=== PATIENT | male | born 1945 | race Two or more races ===

== ENCOUNTER 2019-06-12 21:38 | Inpatient (IN) | payer OTHER ==
[~2019-06-12] VITALS: Ht 177.8 cm; Wt 69.9 kg
[2019-06-13] MEDS ORDERED: ASPI-1152 PO (03:40)
[2019-06-13] MEDS ORDERED: FOLI1CAP13 PO (03:45)
[2019-06-13] MEDS ORDERED: CARV6.252 PO (03:48)
[2019-06-13 03:49] VITALS: BP 110/55
[2019-06-13] MEDS ORDERED: GLIP10TA11 PO (03:49)
[2019-06-13] MEDS ORDERED: FERR325T23 PO (03:51)
--- NOTE | 2019-06-13 03:52 | NUR ---
GPS MDS MANAGER NOTES: RECEIVED 73 Y/O MALE PATIENT FROM [facility]. PATIENT ARRIVED ON THIS UNIT AT 0320 VIA STRETCHER BY 2 EMT. PATIENT ADMITTED ON A 5150 HOLD FOR DTO. PER HOLD PATIENT ARRIVED TO [facility] GPS UNIT DUE TO AGGRESSIVE BEHAVIOR. PT FAMILY REPORTED THAT THE PT TALKED ABOUT AND DYING WITH UNPREDICTABLE BEHAVIOR. UPON FACE TO FACE ASSESSMENT PATIENT NOTED ANXIOUS, COOPERATIVE, QUIET, FLAT AFFECT, FORGETFUL, CONFUSED, AND ROMANSH SPEAKING W/ THE UNDERSTANDING OF SOME TONGAN . PT STATED, " I DONT KNOW WHY ME HERE?" PT DENIES S/I AND H/I AT THIS TIME. PATIENT IS CURRENTLY LYING IN BED SLEEPING WITH EYES CLOSED. NO S/S OF RESP DISTRESS. BREATHING EVEN AND UNLABORED. PT HAS NO S/S OF PAIN. PT IS ALERT AND ORIENTED X 1-2 ON ROOM AIR. PATIENT HAS NO NEEDS AT THIS TIME. PATIENT UNABLE TO SIGN PAPERWORK DUE TO CONFUSION. PATIENT ADVISED OF HIS HOLD AND PATIENT RIGHTS HANDBOOK GIVEN. PATIENTS BELONGINGS WERE INVENTORIED AND CHECKED FOR CONTRABAND. ALL CONTRABAND REMOVED AND STORED IN PATIENTS HALLWAY LOCKER. PATIENT ADVANCED DIRECTIVE PREFERENCES AND NECESSARY PAPERWORK COMPLETED. PATIENT SKIN ASSESSMENT COMPLETED WITH PICTURES TAKEN IN PTS CHART. PT ORIENTED TO ROOM, FLOOR, AND STAFF WITH ALL QUESTIONS ANSWERED. PATIENT EDUCATED ON THE USE OF CALL BRITT. PATIENTS SIDERAILS ARE UP X2 FOR SAFETY. INITIAL BLOOD SUGAR CHECK DONE. MRSA SWAB DONE. PATIENTS BED LOCKED, LOW AND I WILL CONTINUE TO MONITOR THIS PATIENT Q15 MIN WITH THE HELP OF THE STAFF TO MAINTAIN SAFETY.
[2019-06-13] MEDS ORDERED: FLUO10CA27 PO (03:53)
[2019-06-13] MEDS ORDERED: HYDR12.55 PO (03:55)
[2019-06-13] MEDS ORDERED: LISI-603 PO (03:56)
[2019-06-13] MEDS ORDERED: LURA40TA PO (03:59)
[2019-06-13] MEDS ORDERED: METF-442 PO (04:01)
[2019-06-13] MEDS ORDERED: PIOG15TA8 PO (04:02)
[2019-06-13] MEDS ORDERED: SIMV-46 PO (04:03)
[2019-06-13] MEDS ORDERED: SITA100T PO (04:03)
[2019-06-13] MEDS ORDERED: FAMO20TA8 PO (04:06)
[2019-06-13] MEDS ORDERED: LORAZEPAM 0.5 MG TABLET PO PRN (04:30)
[2019-06-13] MEDS ORDERED: ACETAMINOPHEN 325 MG TABLET PO PRN (04:30)
[2019-06-13] MEDS ORDERED: MAGNESIUM HYDROXIDE 30 ML UDC PO PRN (04:30)
[2019-06-13] MEDS ORDERED: TEMAZEPAM 7.5 MG CAPSULE PO PRN (04:30)
[2019-06-13] MEDS ORDERED: MAG HYDROX/AL HYDROX/SIMETH 30 ML UDC PO PRN (04:30)
[2019-06-13] MEDS ORDERED: BLOOD SUGAR DIAGNOSTIC 1 EACH STRIP IN ONE (04:30)
--- NOTE | 2019-06-13 07:30 | NUR ---
INITIAL PT IN DENISE RESTING RESPIRATION EVEN NO S/S OF DISTRESS NOTED. PT CALM COOPERATIVE AM POCT BLOOD SUGAR DONE. SIDE RAILS UP X 2 CALL BRITT NEXT TO PAT WILL CONTINUE TO MONITOR.
[2019-06-13] MEDS: BLOOD SUGAR DIAGNOSTIC 1 EACH STRIP IN SCH ×4 (07:55→21:30)
[2019-06-13 08:00] VITALS: BP 99/52
[2019-06-13 16:00] VITALS: BP 156/75
--- NOTE | 2019-06-13 16:06 | NUR ---
LAB OBTAINED URINE SAMPLE AND SENT TO LAB FOR PROCESING
[2019-06-13 16:41] LABS: APPEARANCE,URINE CLEAR (CLEAR); BILIRUBIN,URINE NEGATIVE (NEGATIVE); BLOOD, URINE NEGATIVE Ery/uL (NEGATIVE); COLOR,URINE YELLOW (YELLOW); KETONES,URINE 15 (NEGATIVE); LEUKOCYTE ESTERASE ,URINE NEGATIVE (NEGATIVE); NITRITE, URINE NEGATIVE (NEGATIVE); PH,URINE 5.5 (5.0-8.0); PROTEIN,URINE NEGATIVE (NEGATIVE); UGLUCOSE 500 MG/DL mg/dL (NEGATIVE); UROBILINOGEN,URINE 0.2 EU/dL (0.2)
[2019-06-13] MEDS: glipiZIDE 10 MG TABLET PO SCH (17:10)
[2019-06-13] MEDS: METFORMIN 500 MG TABLET PO SCH (17:10)
[2019-06-13] MEDS: SIMVASTATIN 20 MG TABLET PO SCH (17:11)
[2019-06-13] MEDS: CARVEDILOL 6.25 MG TABLET PO SCH (17:12)
--- NOTE | 2019-06-13 17:39 | NUR ---
closing pt compliant with all medications easily directable kept safe all shift no issued this shift. will given rn report to pm shift for continuity of care
[2019-06-13] MEDS: risperiDONE 1 MG TABLET PO SCH (19:28)
[2019-06-13 20:42] VITALS: BP 141/66
[2019-06-14 07:18] LABS: BASOPHILS % (AUTO) 0.1 % (0.0-2.0); EOSINOPHILS % (AUTO) 0.3 % (0.0-6.0); HEMATOCRIT 31 % (39-51); HEMOGLOBIN 10.3 g/dL (13.5-17.5); LYMPHOCYTES # (AUTO) 1.3 /CMM (0.8-4.8); LYMPHOCYTES % (AUTO) 14.1 % (20.0-44.0); MEAN CORPUSCULAR HGB CONC 33 g/dl (31.0-36.0); MEAN CORPUSCULAR VOLUME 85 fL (80-96); MONOCYTES % (AUTO) 10.6 % (2.0-12.0); NEUTROPHILS # (AUTO) 6.8 /CMM (1.8-8.9); NEUTROPHILS % (AUTO) 74.9 % (43.0-81.0); PLATELET COUNT (AUTO) 211 /CMM (150-450); RED BLOOD CELL COUNT(AUTO) 3.67 MIL/uL (4.5-6.0)
[2019-06-14 07:27] LABS: CALCIUM, SERUM 8.7 mg/dL (8.5-10.1); CREATININE 0.9 mg/dL (0.6-1.3); POTASSIUM 4.6 mmol/L (3.5-5.1)
[2019-06-14] MEDS: BLOOD SUGAR DIAGNOSTIC 1 EACH STRIP IN SCH ×4 (07:28→21:30)
[2019-06-14 08:00] VITALS: BP 107/58
[2019-06-14] MEDS: FAMOTIDINE (20 MG) 20 MG TABLET PO SCH (08:15)
[2019-06-14] MEDS: VIT B CMPLX 3/FA/VIT C/BIOTIN 1 TAB TABLET PO SCH (08:15)
[2019-06-14] MEDS: LINAGLIPTIN 5 MG TABLET PO SCH (08:15)
[2019-06-14] MEDS: PIOGLITAZONE HCL 15 MG TABLET PO SCH (08:15)
[2019-06-14] MEDS: ASPIRIN EC 81 MG TABLET.DR PO SCH (08:15)
[2019-06-14] MEDS: FERROUS SULFATE (325 MG) 325 MG/TAB TABLET PO SCH (08:15)
[2019-06-14] MEDS: HYDROCHLOROTHIAZIDE 25 MG TABLET PO SCH (08:16)
[2019-06-14] MEDS: risperiDONE 1 MG TABLET PO SCH ×2 (08:16→16:19)
[2019-06-14] MEDS: METFORMIN 500 MG TABLET PO SCH ×2 (08:16→16:19)
[2019-06-14] MEDS: LISINOPRIL (20MG) 20 MG TABLET PO SCH (08:16)
[2019-06-14] MEDS: glipiZIDE 10 MG TABLET PO SCH ×2 (08:16→16:19)
[2019-06-14] MEDS: CARVEDILOL 6.25 MG TABLET PO SCH ×2 (08:17→16:27)
[2019-06-14] MEDS ORDERED: DEXTROSE 50%-WATER 50 ML DISP.SYRIN IV PRN (12:30)
[2019-06-14] MEDS ORDERED: INSULIN REGULAR, HUMAN 100 UNIT/ML 3 ML VIAL SQ PRN (12:30)
[2019-06-14 16:00] VITALS: BP 100/58
[2019-06-14] MEDS: SIMVASTATIN 20 MG TABLET PO SCH (17:11)
[2019-06-14 20:45] VITALS: BP 132/64
--- NOTE | 2019-06-14 21:09 | NUR ---
GPS-RN SCHEDULED BLOOD SUGAR LEVEL CHECKED 55MG/DL. PT. IS ALERT AND OFFERED ORANGE JUICE, TOLERATED WELL. RECHECKED BS LEVEL AFTER 20 MINS AND RESULTED 70MG/DL. WILL CONTINUE TO MONITOR.
[2019-06-15] MEDS: BLOOD SUGAR DIAGNOSTIC 1 EACH STRIP IN SCH ×4 (07:30→21:52)
[2019-06-15 08:21] VITALS: BP 126/61
--- NOTE | 2019-06-15 08:46 | NUR ---
RN NOTE- SPOKE Anjelica PULIDO NP. REGARDING ACCUCHECKS, ORAL HYPOGLYCEMICS AND SSI. OSCAR PULIDO ORDERED DC SLIDING SCALE INSULIN AND CONTINUE ALL OTHER RX.
[2019-06-15] MEDS: LINAGLIPTIN 5 MG TABLET PO SCH (08:53)
[2019-06-15] MEDS: glipiZIDE 10 MG TABLET PO SCH ×2 (08:53→16:46)
[2019-06-15] MEDS: LISINOPRIL (20MG) 20 MG TABLET PO SCH (08:53)
[2019-06-15] MEDS: ASPIRIN EC 81 MG TABLET.DR PO SCH (08:53)
[2019-06-15] MEDS: risperiDONE 1 MG TABLET PO SCH ×2 (08:58→16:46)
[2019-06-15] MEDS: FAMOTIDINE (20 MG) 20 MG TABLET PO SCH (08:59)
[2019-06-15] MEDS: CARVEDILOL 6.25 MG TABLET PO SCH ×2 (08:59→16:45)
[2019-06-15] MEDS: HYDROCHLOROTHIAZIDE 25 MG TABLET PO SCH (08:59)
[2019-06-15] MEDS: PIOGLITAZONE HCL 15 MG TABLET PO SCH (08:59)
[2019-06-15] MEDS: METFORMIN 500 MG TABLET PO SCH ×2 (09:00→16:45)
[2019-06-15] MEDS: FERROUS SULFATE (325 MG) 325 MG/TAB TABLET PO SCH (09:02)
[2019-06-15] MEDS: VIT B CMPLX 3/FA/VIT C/BIOTIN 1 TAB TABLET PO SCH (09:03)
--- NOTE | 2019-06-15 10:45 | NUR ---
SUBSTANCE ABUSE INTERVENTION: Pt unable to participate due to cognitive disorder.
--- NOTE | 2019-06-15 11:57 | NUR ---
FAMILY CONTACT: JONH contacted pts daughter Mickie [phone] to discuss discharge and treatment planning. Daughter stated that she is unsure if pt will return back home due to his aggressive/violent behavior. Daughter states that her and her siblings will discuss what the best discharge plan for pt will be. SW informed her that pts insurance has covered 3 days and stated that they may not approve additional days as per MD's note pt is doing better and is denying suicidal/homaxial ideation. Daughter states that she understands and states that if insurance no longer covers pt will return home. SW advised her to dis-enroll pt from [employer] plan to [facility] [employer] as pt will qualify for more resources under Medicare. Daughter stated that she will assist pt with disenrollment. Daughter also requested pts son Wicho [phone] be contacted to discuss further treatment and states that he should be the main point of contact.
--- NOTE | 2019-06-15 14:53 | NUR ---
INITIAL DISCHARGE PLAN: Patient will return to his home [id number] [address] [place] [address]. Pts daughter Mickie [phone] confirmed pt will return home once stable for discharge. SW will help form a safe and proper discharge in collaboration with .
[2019-06-15 16:00] VITALS: BP 133/75
--- NOTE | 2019-06-15 16:20 | NUR ---
FAMILY CONTACT: SW received a call from pts fiona Sands [phone] requesting discharge information and clarification on pts HMO coverage. SW explained approved days and also encouraged him to dis-enroll pt from [facility] to straight Medicare for future placement options. Son agreed and stated that he will be picking pt up and transporting him home once stable for discharge.
[2019-06-15] MEDS: SIMVASTATIN 20 MG TABLET PO SCH (17:58)
[2019-06-15 20:38] VITALS: BP 93/49
[2019-06-16] MEDS: BLOOD SUGAR DIAGNOSTIC 1 EACH STRIP IN SCH ×4 (07:24→22:21)
[2019-06-16 08:00] VITALS: BP 105/60
[2019-06-16] MEDS: FERROUS SULFATE (325 MG) 325 MG/TAB TABLET PO SCH (08:11)
[2019-06-16] MEDS: VIT B CMPLX 3/FA/VIT C/BIOTIN 1 TAB TABLET PO SCH (08:11)
[2019-06-16] MEDS: ASPIRIN EC 81 MG TABLET.DR PO SCH (08:11)
[2019-06-16] MEDS: METFORMIN 500 MG TABLET PO SCH ×2 (08:11→17:16)
[2019-06-16] MEDS: glipiZIDE 10 MG TABLET PO SCH ×2 (08:11→17:16)
[2019-06-16] MEDS: CARVEDILOL 6.25 MG TABLET PO SCH ×2 (08:12→17:00)
[2019-06-16] MEDS: PIOGLITAZONE HCL 15 MG TABLET PO SCH (08:14)
[2019-06-16] MEDS: LINAGLIPTIN 5 MG TABLET PO SCH (08:14)
[2019-06-16] MEDS: risperiDONE 1 MG TABLET PO SCH ×2 (08:14→17:16)
[2019-06-16] MEDS: FAMOTIDINE (20 MG) 20 MG TABLET PO SCH (08:14)
[2019-06-16] MEDS: LISINOPRIL (20MG) 20 MG TABLET PO SCH (08:18)
[2019-06-16] MEDS: HYDROCHLOROTHIAZIDE 25 MG TABLET PO SCH (08:18)
--- NOTE | 2019-06-16 10:50 | NUR ---
UR NOTE: JONH faxed updated clinicals to Mayda ed case manager at [facility] [phone] EXT [phone]. FAX [phone]. AUTHORIZATION#[id number].
[2019-06-16 11:11] LABS: CALCIUM, SERUM 8.5 mg/dL (8.5-10.1); CREATININE 1.3 mg/dL (0.6-1.3); POTASSIUM 4.1 mmol/L (3.5-5.1)
[2019-06-16 11:14] LABS: BASOPHILS % (AUTO) 0.1 % (0.0-2.0); EOSINOPHILS % (AUTO) 0.6 % (0.0-6.0); HEMATOCRIT 30 % (39-51); HEMOGLOBIN 9.9 g/dL (13.5-17.5); LYMPHOCYTES # (AUTO) 1.2 /CMM (0.8-4.8); LYMPHOCYTES % (AUTO) 12.5 % (20.0-44.0); MEAN CORPUSCULAR HGB CONC 33 g/dl (31.0-36.0); MEAN CORPUSCULAR VOLUME 85 fL (80-96); MONOCYTES # (AUTO) 0.9 /CMM (0.1-1.30); MONOCYTES % (AUTO) 8.8 % (2.0-12.0); NEUTROPHILS # (AUTO) 7.7 /CMM (1.8-8.9); PLATELET COUNT (AUTO) 254 /CMM (150-450); RED BLOOD CELL COUNT(AUTO) 3.53 MIL/uL (4.5-6.0); WHITE BLOOD COUNT (AUTO) 9.8 K/uL (4.3-11.0)
--- NOTE | 2019-06-16 14:30 | NUR ---
FAMILY CONTACT: SW received a call from pts fiona Sands [phone] requesting discharge information. SW informed son that MD has not ordered DC and that pt is still not stable for discharge per MD's note. Son understood.
[2019-06-16 16:00] VITALS: BP 110/52
[2019-06-16] MEDS: SIMVASTATIN 20 MG TABLET PO SCH (17:16)
[2019-06-16 20:07] VITALS: BP 112/48
[2019-06-17 06:14] LABS: BASOPHILS % (AUTO) 0.2 % (0.0-2.0); EOSINOPHILS % (AUTO) 0.5 % (0.0-6.0); HEMATOCRIT 31 % (39-51); HEMOGLOBIN 10.3 g/dL (13.5-17.5); LYMPHOCYTES # (AUTO) 1.1 /CMM (0.8-4.8); MEAN CORPUSCULAR HGB CONC 33 g/dl (31.0-36.0); MEAN CORPUSCULAR VOLUME 85 fL (80-96); MONOCYTES # (AUTO) 0.9 /CMM (0.1-1.30); MONOCYTES % (AUTO) 8.3 % (2.0-12.0); NEUTROPHILS # (AUTO) 8.2 /CMM (1.8-8.9); PLATELET COUNT (AUTO) 305 /CMM (150-450); RED BLOOD CELL COUNT(AUTO) 3.69 MIL/uL (4.5-6.0); WHITE BLOOD COUNT (AUTO) 10.2 K/uL (4.3-11.0)
[2019-06-17 06:36] LABS: BILIRUBIN,TOTAL 0.5 mg/dL (0.2-1.0); CREATININE 1.1 mg/dL (0.6-1.3); MAGNESIUM 1.8 mg/dL (1.8-2.4); PHOSPHORUS 3.2 mg/dL (2.5-4.9); POTASSIUM 4.4 mmol/L (3.5-5.1); TOTAL PROTEIN, SERUM 6.2 g/dL (6.4-8.2)
[2019-06-17] MEDS: BLOOD SUGAR DIAGNOSTIC 1 EACH STRIP IN SCH ×4 (07:38→21:57)
[2019-06-17 08:00] VITALS: BP 100/52
[2019-06-17] MEDS: PIOGLITAZONE HCL 15 MG TABLET PO SCH (08:26)
[2019-06-17] MEDS: VIT B CMPLX 3/FA/VIT C/BIOTIN 1 TAB TABLET PO SCH (08:26)
[2019-06-17] MEDS: risperiDONE 1 MG TABLET PO SCH ×2 (08:26→16:30)
[2019-06-17] MEDS: METFORMIN 500 MG TABLET PO SCH ×2 (08:26→16:31)
[2019-06-17] MEDS: FERROUS SULFATE (325 MG) 325 MG/TAB TABLET PO SCH (08:26)
[2019-06-17] MEDS: ASPIRIN EC 81 MG TABLET.DR PO SCH (08:26)
[2019-06-17] MEDS: FAMOTIDINE (20 MG) 20 MG TABLET PO SCH (08:26)
[2019-06-17] MEDS: glipiZIDE 10 MG TABLET PO SCH ×2 (08:29→16:31)
[2019-06-17] MEDS: LINAGLIPTIN 5 MG TABLET PO SCH (08:29)
[2019-06-17] MEDS: CARVEDILOL 6.25 MG TABLET PO SCH ×2 (08:29→16:30)
--- NOTE | 2019-06-17 14:44 | NUR ---
FAMILY CONTACT: JONH contacted pts fiona Sands [phone] and informed him MD has ordered discharge for tomorrow. Son agreed with discharge and stated he will be picking pt up at 1:00pm.
--- NOTE | 2019-06-17 14:47 | NUR ---
UR NOTE: JONH contacted Mayda case management director at [facility] [phone] EXT [phone]. FAX [phone]. AUTHORIZATION#[id number] and informed her pt will be discharged tomorrow back home. She stated an aftercare case management director will be contacting JONH to provide pt with aftercare appointments.
--- NOTE | 2019-06-17 15:59 | NUR ---
UR NOTE: SW received a call from Balbina aftercare coordinator at [facility] [phone] stating pt has a follow up appointment on June 24 at 3:30pm with Libertad Marshall LCSW and on July 17 at 4:00pm with Mario Alberto Mir NP for medication management at Address: [address] [place] [address] . JONH will provide these follow up appointments to pts fiona Sands.
[2019-06-17 16:00] VITALS: BP 136/69
--- NOTE | 2019-06-17 16:10 | NUR ---
UR NOTE: JONH faxed updated clinicals to Mayda correctional case manager at [facility] [phone] EXT [phone]. FAX [phone]. AUTHORIZATION#[id number].
[2019-06-17] MEDS: SIMVASTATIN 20 MG TABLET PO SCH (18:09)
[2019-06-17 20:02] VITALS: BP 119/57
--- NOTE | 2019-06-17 21:57 | NUR ---
sizing machine and drier operator notes blood sugar 184. no insulin coverages at this time as ordered, no signs of hypo/hyper glycemia noted. will continue monitoring.
--- NOTE | 2019-06-18 06:11 | NUR ---
RETINAL ANGIOGRAPHER NOTES PT SLEEPING COMFORTABLY IN BED WITHOUT ANY DISTRESS NOTED. SLEPT WELL AND STABLE JUSTINA THE NIGHT. KEPT HIM WARM AND COMFORTABLE AT ALL TIMES. ENDORSE TO AM NURSE FOR CONTINUITY OF CARE.
[2019-06-18] MEDS: BLOOD SUGAR DIAGNOSTIC 1 EACH STRIP IN SCH ×2 (07:38→12:29)
[2019-06-18 08:00] VITALS: BP 113/67
[2019-06-18 08:16] VITALS: BP 113/67
[2019-06-18] MEDS: glipiZIDE 10 MG TABLET PO SCH (08:16)
[2019-06-18] MEDS: VIT B CMPLX 3/FA/VIT C/BIOTIN 1 TAB TABLET PO SCH (08:16)
[2019-06-18] MEDS: ASPIRIN EC 81 MG TABLET.DR PO SCH (08:16)
[2019-06-18] MEDS: CARVEDILOL 6.25 MG TABLET PO SCH (08:16)
[2019-06-18] MEDS: LINAGLIPTIN 5 MG TABLET PO SCH (08:16)
[2019-06-18] MEDS: METFORMIN 500 MG TABLET PO SCH (08:16)
[2019-06-18] MEDS: FAMOTIDINE (20 MG) 20 MG TABLET PO SCH (08:17)
[2019-06-18] MEDS: FERROUS SULFATE (325 MG) 325 MG/TAB TABLET PO SCH (08:17)
[2019-06-18] MEDS: PIOGLITAZONE HCL 15 MG TABLET PO SCH (08:17)
[2019-06-18] MEDS: risperiDONE 1 MG TABLET PO SCH (08:19)
--- NOTE | 2019-06-18 10:41 | NUR ---
DISCHARGE NOTE: Pt will be discharged at 1:00pm via private vehicle home [address] [address] [place] [address]. Pts fiona Sands [phone] will be picking pt up and transporting home. Pts mood is euythymic with congruent affect. Pt denied visual/auditory hallucinations and denied suicidal/homicidal ideation. Pt has a follow up appointment on June 24, 2019 at 3:30pm with Libertad Marshall LCSW and on July 17, 2019 at 4:00pm with Mario Alberto Mir NP for medication management at Address: [address] [place] [id number] . will provide these follow up appointments to pts fiona Sands. Pt was also given a referral to [facility] Address: [address] [place] [address] . The multidisciplinary exit care form was done, printed, signed, and given to the patient. Addendum: 06/18/19 at 1045 by MILAGRO BORJA Pt will address his alcohol use on June 24, 2019 at 3:30pm with Libertad Marshall LCSW Address: [address] [facility] [address] .
--- NOTE | 2019-06-18 11:01 | NUR ---
Dr. Goodwin covering for Dr. Gomez gave an order to D/C hold and D/C home and to follow up with psych and medical doctors. Pt. without distress, denies suicidal and homicidal. Belongings ready, pt. signed the discharged papers and pictures taken for the skin issues. Kirsten Graham (RUG MEASURER) made aware of the discharge and with prescriptions.
--- NOTE | 2019-06-18 11:09 | NUR ---
Kirsten Graham made aware the CT of the abdomen result and ordered ultra sound (US scrotum contents).
--- NOTE | 2019-06-18 12:31 | NUR ---
BS is form 39 to 47 and orange juice offered and formula maker made aware.
--- NOTE | 2019-06-18 13:11 | NUR ---
Latest BS is 58, contacted the director voice awaiting. Addendum: 06/18/19 at 1442 by SAHIL CAMPOS RN SHIPPING AND RECEIVING CLERK Notified that pt. 100% and lunch 25% Addendum: 06/18/19 at 1511 by SAHIL CAMPOS RN 100% for breakfast
--- NOTE | 2019-06-18 13:50 | NUR ---
Kirsten Graham made aware of the latest BS of 61. Ordered ok to discharge and Hold Actos.ROUTE RELIEF DRIVER is aware of the CT and Ultra sound result. Addendum: 06/18/19 at 1434 by SAHIL CAMPOS RN Kirsten Graham ordered Home Health services and social research assistant made aware. Addendum: 06/18/19 at 1622 by SAHIL CAMPOS RN Kirsten Kramer ordered to hold his Actos for d/c
--- NOTE | 2019-06-18 14:00 | NUR ---
Pt. left the unit with belongings and was picked up with his sons. Instructed on meds to continue and verbalizes understanding and advised to made a follow up with his psychiatrist and medical doctors and agreed. Left the unit via a wheelchair and wheeled by staff to the lobby. V/S taken: BP 114/60, LA 85, RR 18, temp 98.0 and oxygen sat 95%.
--- NOTE | 2019-06-18 14:28 | NUR ---
HOME HEALTH REFERRAL: faxed home health referral to [facility] Address: [address], [place] [address] for review.
--- NOTE | 2019-07-08 08:59 | NUR ---
15 DAY SUBSTANCE ABUSE FOLLOW UP: Unable to follow up due to number no longer valid.
== END 2019-06-18 14:00 | disposition home health service (06) | DRG 885 ==
LOC: GPS 06-13 03:02
PROVIDERS: ADMIT Psychiatry & Neurology Psychosomatic Medicine; ATTEND Registered Nurse
DX: F25.1 Schizoaffective disorder, depressive type (principal); N17.9 Acute kidney failure, unspecified; E11.65 Type 2 diabetes mellitus with hyperglycemia; E87.1 Hypo-osmolality and hyponatremia; I10 Essential (primary) hypertension; K21.9 Gastro-esophageal reflux disease without esophagitis; E78.5 Hyperlipidemia, unspecified; E86.1 Hypovolemia; N43.3 Hydrocele, unspecified; F10.20 Alcohol dependence, uncomplicated; Z91.19 Patient's noncompliance with other medical treatment and regimen
CPT/HCPCS: 36415; 76870-TC; 80048-TC; 80053-TC; 80061-TC; 81000-TC; 82962-TC; 83735-TC; 84100-TC; 84443-TC; 85025-TC; 87081-TC; 97116-TC; 97530-TC; J1815